=== PATIENT | female | born 2000 | race Caucasian/White ===

== ENCOUNTER 2021-01-30 03:24 | Inpatient (IN) | payer BC ==
[2021-01-30] VITALS (458 sets, daily range): BP systolic 101–115; BP diastolic 52–74; PULSE 83–97; TEMP 97.8–98.2; O2SAT 95–100
[~2021-01-30] VITALS: Ht 160 cm; Wt 68.0 kg
[2021-01-30 03:48] LABS: COLLECTION METHOD CLEAN CATCH
[2021-01-30 03:52] LABS: HEMATOCRIT 45.9 % (35.0-45.0); HEMOGLOBIN 15.8 g/dl (12.0-15.0); MEAN CELL VOLUME 83 fl (80.0-95.0); MEAN CORPUSCULAR HEMOGLOBIN 29 pg (26.0-32.0); MEAN CORPUSCULAR HGB CONC 34 g/dl (33.0-37.0); MEAN PLATELET VOLUME 10.2 fl (7.4-10.4); PLATELET COUNT 431 K/mm3 (130-400); RED BLOOD COUNT 5.54 M/mm3 (4.10-5.30); REDCELL DISTRIBUTION WIDTH-CV 11.7 % (11.5-14.5)
[2021-01-30 03:55] LABS: PH 5 (5-8); SQUAMOUS EPITHELIAL 0-2 /hpf; URINE APPEARANCE Clear; URINE BACTERIA None Seen /hpf; URINE BILIRUBIN Negative (NEGATIVE); URINE BLOOD Negative (NEGATIVE); URINE COLOR Straw; URINE GLUCOSE 3+ (NEGATIVE); URINE KETONE 2+ (NEGATIVE); URINE LEUKOCYTE ESTERASE Negative (NEGATIVE); URINE NITRATE Negative (NEGATIVE); URINE PROTEIN(semi-quant) 2+ (NEGATIVE); URINE RBC 0-2 /hpf; URINE UROBILINOGEN Negative (NEGATIVE)
[2021-01-30 04:01] LABS: ACETONE,SERUM MODERATE
[2021-01-30 04:03] LABS: ALANINE AMINOTRANSFERASE 30 U/L (4-34); ALBUMIN 5.5 gm/dL (3.5-5.0); ALKALINE PHOSPHATASE 224 U/L (50-136); ANION GAP 30 mmol/L (7-16); AST,SGOT 27 U/L (15-37); BILIRUBIN,TOTAL 0.5 mg/dL (0.0-1.0); BLOOD UREA NITROGEN 23 mg/dL (7-17); CALCIUM 9.9 mg/dL (8.4-10.2); CHLORIDE 100 mmol/L (98-107); CREATININE, serum 0.84 (0.52-1.25); LIPASE 22 U/L (23-300); POTASSIUM 5.3 mmol/L (3.4-5.0); SODIUM 135 mmol/L (137-145)
[2021-01-30 04:06] LABS: BAND 11 % (0-10); GLUCOSE 602 mg/dL (74-106); LYMPHOCYTE 7 % (20.0-51.0); METAMYELOCYTE 3 % (0-0); MYELOCYTE 1 % (0-0); NEUTROPHILS 76 % (42.0-75.2)
[2021-01-30 04:07] LABS: CARBON DIOXIDE 5 mmol/L (22-30); PLATELET ESTIMATE INCREASED (NORMAL)
--- NOTE | 2021-01-30 05:15 | NUR ---
Pt arrived to ICU room 8 via cart at this time with FE Sims RN. Pt able to transfer from the cart to the ICU bed with SBA. Insulin drip on hold at this time per protocol. Pt oriented to room and call light system. Pt is sitting up in the bed and she denies furter needs. Call light within reach.
[2021-01-30 05:20] LABS: MAGNESIUM 2.6 mg/dL (1.6-2.3); PHOSPHOROUS 7.3 mg/dL (2.5-4.5)
[2021-01-30] MEDS ORDERED: HUMALOG100 U/ML SQ (05:26)
[2021-01-30 06:24] LABS: CALCIUM 8.3 mg/dL (8.4-10.2); CREATININE, serum 0.66 (0.52-1.25); POTASSIUM 4.9 mmol/L (3.4-5.0)
--- NOTE | 2021-01-30 08:00 | NUR ---
Patient resting in bed. Alert and oriented and cooperative with staff. VS stable. Denies any needs or concerns at this time.
[2021-01-30 10:19] LABS: CALCIUM 8.6 mg/dL (8.4-10.2); CREATININE, serum 0.54 (0.52-1.25); POTASSIUM 4.7 mmol/L (3.4-5.0)
[2021-01-30 14:17] LABS: CALCIUM 8.4 mg/dL (8.4-10.2); CREATININE, serum 0.48 (0.52-1.25); POTASSIUM 4.1 mmol/L (3.4-5.0)
--- NOTE | 2021-01-30 16:38 | NUR ---
Cushion Worker met with the patient to complete intake. The patient is currently a student at [employer]. Her classes are all online this semester. The patient lives independently with roommates. The patient is Type 1 Diabetic and uses an insulin pump. The patient is on her parent's insurance and has no problems getting supplies. The patient's PCP is Dr. Baldwin in [place], [place]. She does not have a local PCP. The patient receives medications from [facility]. The patient does not have advanced directives. She is not . The patient's mother is named Chantale #[phone]. The patient plans to return back home at discharge. A roommate will provide transportation. There are no additonal needs at this time.
--- NOTE | 2021-01-30 17:20 | NUR ---
Reporting some intermittent nausea along with a feeling of pressure in upper abdomen/ chest area. Will administer tylenol and zofran. Assisted up to recliner to assist with repositioning and comfort. Will continue to monitor.
[2021-01-30 18:06] LABS: CALCIUM 8.7 mg/dL (8.4-10.2); CREATININE, serum 0.5 (0.52-1.25); POTASSIUM 4.1 mmol/L (3.4-5.0)
[2021-01-31] VITALS (387 sets, daily range): BP systolic 98–109; BP diastolic 55–62; PULSE 77–83; TEMP 97.8–98.4; O2SAT 93–99
[2021-01-31 05:54] LABS: HEMATOCRIT 38.4 % (35.0-45.0); MEAN CELL VOLUME 82 fl (80.0-95.0); MEAN CORPUSCULAR HGB CONC 34 g/dl (33.0-37.0); MEAN PLATELET VOLUME 9.5 fl (7.4-10.4); RED BLOOD COUNT 4.68 M/mm3 (4.10-5.30); REDCELL DISTRIBUTION WIDTH-CV 12.5 % (11.5-14.5)
[2021-01-31 06:00] LABS: MEAN CORPUSCULAR HEMOGLOBIN 28 pg (26.0-32.0)
[2021-01-31 06:04] LABS: CREATININE, serum 0.5 (0.52-1.25)
[2021-01-31 06:05] LABS: HEMOGLOBIN 13.2 g/dl (12.0-15.0)
[2021-01-31 06:06] LABS: PLATELET COUNT 284 K/mm3 (130-400)
[2021-01-31 06:32] LABS: BAND 11 % (0-10); LYMPHOCYTE 19 % (20.0-51.0); NEUTROPHILS 65 % (42.0-75.2)
[2021-01-31 06:33] LABS: PLATELET ESTIMATE NORMAL (NORMAL)
--- NOTE | 2021-01-31 08:15 | NUR ---
Resting in bed; awakens easily. Alert and oriented and in no distress. VS stable. Assited to call for breakfast. Denies any other needs or concerns at this time.
--- NOTE | 2021-01-31 12:45 | NUR ---
Patient discharged from ICU. Assisted out of facility via wheelchair and patient was met by friends. Alert and oriented and in no distress upon discharge.
== END 2021-01-31 12:45 | disposition home or self-care (01) | DRG 639 ==
LOC: COL.ER 03:24 → ICU 04:28
PROVIDERS: Emergency Medicine; Internal Medicine; Student in an Organized Health Care Education/Training Program; ADMIT Student in an Organized Health Care Education/Training Program
DX: E10.10 Type 1 diabetes mellitus with ketoacidosis without coma (principal); E87.5 Hyperkalemia; D72.829 Elevated white blood cell count, unspecified
CPT/HCPCS: 99223-AI; 99239; J1815; J2405; J3480; J7030